=== PATIENT | male | born 1995 | race Caucasian/White ===

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

== ENCOUNTER 2018-03-01 16:35 | Emergency (ER) | payer BC, OTHER ==
[2018-03-01 17:11] VITALS: BP 116/60
--- NOTE | 2018-03-01 17:11 | UC ---
Upper Extremity HPI - HPI Summary HPI Summary: Patient was lifting a 40 pound box of frozen food at work, felt a kim pain in the left wrist, he can move it but cannot lift any more. there is a stipr of brusing on the posterior aspect of the wrist noticed 20 min after injury - History of Current Complaint Stated Complaint: LEFT HAND INJURY (WC) Time Seen by Provider: 03/01/18 17:03 Hx Obtained From: Patient ?: No Onset/Duration: Sudden Onset, Lasting Hours Severity Initially: Moderate Severity Currently: Moderate Location Of Pain: Is Diffuse - left wrsit Alleviating Factor(s): Ice Associated Signs And Symptoms: Positive: Bruising, Weakness - Allergies/Home Medications Allergies/Adverse Reactions: Allergies Allergy/AdvReac Type Severity Reaction Status Date / Time cephalexin Allergy Rash Verified 03/01/18 17:13 Home Medications: Home Medications NK [No Home Medications Reported] 03/01/18 [History Confirmed 03/01/18] PMH/Surg Hx/FS Hx/Imm Hx Previously Healthy: Yes - Surgical History Surgical History: None - Family History Known Family History: Positive: None Negative: Cardiac Disease, Hypertension - Social History Alcohol Use: None Substance Use Type: Marijuana Substance Use Comment - Amount & Last Used: 3 weeks ago Smoking Status (MU): Never Smoked Tobacco - Immunization History Most Recent Influenza Vaccination: UNSURE Review of Systems All Other Systems Reviewed And Are Negative: Yes Constitutional: Positive: Negative Skin: Positive: Bruising Eyes: Positive: Negative ENT: Positive: Negative Respiratory: Positive: Negative Cardiovascular: Positive: Negative Gastrointestinal: Positive: Negative Genitourinary: Positive: Negative Motor: Positive: Negative Neurovascular: Positive: Negative Musculoskeletal: Positive: Arthralgia, Myalgia Neurological: Positive: Negative Psychological: Positive: Negative Is Patient Immunocompromised?: No Physical Exam Triage Information Reviewed: Yes Appearance: Well-Appearing, Well-Nourished, Pain Distress Vital Signs Reviewed: Yes Eye Exam: Normal ENT Exam: Normal Dental Exam: Normal Neck exam: Normal Respiratory Exam: Normal Respiratory: Positive: Chest non-tender, Lungs clear, Normal breath sounds Cardiovascular Exam: Normal Cardiovascular: Positive: RRR, No Murmur, Pulses Normal Abdominal Exam: Normal Musculoskeletal: Positive: Strength Intact, ROM Intact, Edema @ - mild edema over the posterior wrist, small area of bruising noted Neurological Exam: Normal Psychological Exam: Normal Skin Exam: Normal Skin: Positive: Other Upper Extremity Course/Dx - Course Course Of Treatment: hx obtained, exam performed ,meds reviewed, xray obtained and was negative wrist splint applied and recommend referral to Ortho if not improving over the next few days. - Differential Dx/Diagnosis Differential Diagnosis/HQI/PQRI: Fracture (Closed), Strain, Sprain Provider Diagnosis: Left wrist sprain Discharge - Sign-Out/Discharge Documenting (check all that apply): Patient Departure All imaging exams completed and their final reports reviewed: No Studies - Discharge Plan Condition: Stable Disposition: HOME Patient Education Materials: Wrist Sprain (ED) Forms: *Work Release Referrals: Bin Fishman MD [Medical Doctor] - Benjamin Buitrago MD [Primary Care Provider] - Additional Instructions: 1. Use the splint for the next few days to protect and allow the wrist to heal 2. If not improving in the next week, follow up with Dr fishman. - Billing Disposition and Condition Condition: STABLE Disposition: Home - Attestation Statements Provider Attestation: Per institutional requirements, I have reviewed the chart, however, I was not consulted specifically or made aware of this patient by the midlevel provider. I did not personally evaluate, interact with , or disposition this patient.
== END 2018-03-01 17:55 | disposition home or self-care (01) ==
LOC: UCCORT 16:35
DX: S63.502A Unspecified sprain of left wrist, initial encounter (principal); X50.0XXA Overexertion from strenuous movement or load, initial encounter; Y93.89 Activity, other specified; Y92.89 Other specified places as the place of occurrence of the external cause; Y99.0 Civilian activity done for income or pay; Z88.1 Allergy status to other antibiotic agents
CPT/HCPCS: 99212; G0463

== ENCOUNTER 2018-11-08 14:19 | Emergency (ER) | payer OTHER ==
[2018-11-08 14:50] VITALS: BP 133/66
--- NOTE | 2018-11-08 15:14 | UC ---
Rectal Pain HPI - HPI Summary HPI Summary: Has had off/on rectal bleeding since being a teenager. Did a lot of heavy lifting at work yesterday and had the most bleeding that he's ever had along with some rectal pain. No diarrhea. No mucus in the stool. No fevers/ sweats or chills. - History Of Current Complaint Chief Complaint: UCGeneralIllness Stated Complaint: PERSONAL Time Seen by Provider: 11/08/18 14:54 Hx Obtained From: Patient Onset/Duration: Sudden Onset, Lasting Days - 1 Severity Initially: Mild Severity Currently: Moderate Pain Intensity: 2 Location Of Pain: Rectal Character: Dull Aggravating Factor(s): Nothing Associated Signs And Symptoms: Positive: Rectal Bleeding, Bright Red Blood w/ Stool Related History: Hemorrhoids - ?? - Allergies/Home Medications Allergies/Adverse Reactions: Allergies Allergy/AdvReac Type Severity Reaction Status Date / Time shellfish derived Allergy Intermediate slight Verified 11/08/18 14:51 swelling of lips cephalexin Allergy Rash Verified 11/08/18 14:51 PMH/Surg Hx/FS Hx/Imm Hx Psychological History: Anxiety - Surgical History Surgical History: None - Family History Known Family History: Positive: None, Cardiac Disease, Diabetes Negative: Hypertension - Social History Occupation: Employed Full-time Lives: With Family Alcohol Use: Occasionally Substance Use Type: Marijuana Substance Use Comment - Amount & Last Used: couple times a week Smoking Status (MU): Former Smoker - Immunization History Most Recent Influenza Vaccination: UNSURE Review of Systems All Other Systems Reviewed And Are Negative: Yes Gastrointestinal: Positive: Other - rectal bleeding Physical Exam Triage Information Reviewed: Yes Appearance: Well-Appearing, No Pain Distress, Well-Nourished Vital Signs: Initial Vital Signs Temp 98.6 F 11/08/18 14:46 Pulse 54 11/08/18 14:46 Resp 16 11/08/18 14:46 BP 133/66 11/08/18 14:46 Pulse Ox 100 11/08/18 14:46 Vital Signs Reviewed: Yes Eyes: Positive: Conjunctiva Clear ENT: Positive: Pharynx normal, TMs normal Neck exam: Normal Respiratory Exam: Normal Cardiovascular Exam: Normal Abdominal Exam: Normal Abdomen Description: Positive: Other: - No significant external hemorrhoids. Musculoskeletal Exam: Normal Neurological Exam: Normal Psychological Exam: Normal Skin Exam: Normal Rectal Pain Course/Dx - Course Course Of Treatment: Advised likely internal hemorrhoids but cannot r/o cancer, proctitis/ IBD. - Differential Dx/Diagnosis Differential Diagnosis/HQI/PQRI: Hemorrhoid(s), Rectal Fissure, Rectal Polyps Provider Diagnosis: Rectal bleeding Discharge ED - Sign-Out/Discharge Documenting (check all that apply): Patient Departure All imaging exams completed and their final reports reviewed: No Studies - Discharge Plan Condition: Stable Disposition: HOME Prescriptions: Hydrocortisone [Procto-Johnnie] 1 gm DC BID #1 [email or web address] Patient Education Materials: Rectal Bleeding (ED), Hydrocortisone (Into the rectum) Referrals: Benjamin Buitrago MD [Primary Care Provider] - Dionicio Montano MD [Medical Doctor] - 1 Week (follow up evaluation for the rectal bleeding to rule out cancer.) - Billing Disposition and Condition Condition: STABLE Disposition: Home
== END 2018-11-08 15:33 | disposition home or self-care (01) ==
LOC: UCCORT 14:19
DX: K62.5 Hemorrhage of anus and rectum (principal); Z87.891 Personal history of nicotine dependence
CPT/HCPCS: 99212; G0463